=== PATIENT | male | born 1970 | race Caucasian/White ===

== ENCOUNTER 2020-12-11 17:39 | Emergency (ER) | payer BC ==
[2020-12-11 17:55] VITALS: RESP 18
--- NOTE | 2020-12-11 17:56 | ED ---
General Adult HPI <Hemant Gooden - Last Filed: 12/11/20 17:54> - General Source: patient, family, RN notes reviewed Mode of arrival: ambulatory - History of Present Illness -: days(s) (7) Consistency: constant Improves with: none Worsens with: movement Associated Symptoms: denies other symptoms <Mariusz Wilkersoni - Last Filed: 12/11/20 20:10> - General Stated complaint: Sent by PCP - Low O2 - History of Present Illness Initial comments: 50-year-old male presents to emergency department with a chief complaint of low oxygen levels. Daughter states the patient is developed symptoms about one week ago along with a productive cough and congestion. States they use a pulse oximeter home which read in the high 80s so they called the primary care physician's office who advised him to come to the emergency department for evaluation. Patient does report feeling winded on exertion but denies any chest pain. He reports generalized myalgias and fatigue but denies any nausea vomiting diarrhea. (Hemant Gooden) - Related Data Home Medications Medication Instructions Recorded Confirmed Albuterol Sulfate [Albuterol 2 puff INHALATION RT-Q4H PRN 12/11/20 12/11/20 Sulfate Hfa] Cholecalciferol [Vitamin D3 (25 25 mcg PO DAILY 12/11/20 12/11/20 Mcg = 1000 Iu)] Fluticasone Propionate 1 spr EA NOSTRIL DAILY PRN 12/11/20 12/11/20 Guaifen/Phenyleph/Acetaminophn 1 tab PO BID PRN 12/11/20 12/11/20 [Tylenol Sinus Severe Caplet] Ibuprofen [Motrin Ib] 800 mg PO Q8H PRN 12/11/20 12/11/20 Loratadine [Claritin] 10 mg PO DAILY PRN 12/11/20 12/11/20 Sildenafil Citrate [Viagra] 50 mg PO DAILY PRN 12/11/20 12/11/20 Zinc 50 mg PO DAILY 12/11/20 12/11/20 guaiFENesin [Mucinex] 600 mg PO BID PRN 12/11/20 12/11/20 Allergies Allergy/AdvReac Type Severity Reaction Status Date / Time No Known Allergies Allergy Verified 12/11/20 19:08 Review of Systems ROS Other: All systems not noted in ROS Statement are negative. <Hemant Gooden - Last Filed: 12/11/20 17:54> ROS Other: All systems not noted in ROS Statement are negative. <Shamir Wilkerson - Last Filed: 12/11/20 20:10> ROS Statement: Those systems with pertinent positive or pertinent negative responses have been documented in the HPI. General Exam General appearance: alert, in no apparent distress Head exam: Present: normocephalic, normal inspection Eye exam: Present: normal appearance (glasses), PERRL, EOMI. Absent: scleral icterus, conjunctival injection, periorbital swelling Pupils: Present: normal accommodation ENT exam: Present: normal exam, mucous membranes moist Neck exam: Present: normal inspection, full ROM. Absent: tenderness, meningismus, lymphadenopathy, thyromegaly Respiratory exam: Present: decreased breath sounds (rll). Absent: respiratory distress, wheezes Cardiovascular Exam: Present: tachycardia GI/Abdominal exam: Present: soft, normal bowel sounds. Absent: distended, tenderness, guarding, rebound, rigid Back exam: Absent: tenderness (scoliosis) Neurological exam: Present: alert, oriented X3, CN II-XII intact Psychiatric exam: Present: normal affect, normal mood Skin exam: Present: warm, dry, intact, normal color. Absent: rash <Shamir Wilkerson - Last Filed: 12/11/20 20:10> Course Vital Signs 12/11/20 12/11/20 17:52 18:16 Temperature 101.4 F H 100.2 F H Pulse Rate 114 H 106 H Respiratory 18 18 Rate Blood Pressure 138/62 O2 Sat by Pulse 90 L 96 Oximetry Medical Decision Making - Lab Data Result diagrams: 12/11/20 19:05 12/11/20 19:05 - EKG Data EKG shows normal: sinus rhythm, intervals (Ventricular rate 104, NJ 0.17, QRS 0.94, QTc 0.431) <Shamir Wilkerson - Last Filed: 12/11/20 20:10> - Medical Decision Making Ambulatory pulse ox 91% resting pulse ox 96% on room air, d-dimer -0.49, troponin -0.012, PVC count 7.2 patient nontoxic appearing. Chest x-ray shows diffuse patchy infiltrates, heart size within normal limits, no pneumothorax. Discussed results with the patient was agreeable to going home and continuing oral hydration, Tylenol, Motrin for fever or body aches and following up with primary care doctor. Case discussed with Dr. Thornton who is agreeable with this plan. (Shamir Wilkerson) - Lab Data Lab Results 12/11/20 12/11/20 12/11/20 Range/Units 17:57 19:05 19:05 WBC 7.2 (3.8-10.6) k/uL RBC 4.16 L (4.30-5.90) m/uL Hgb 13.8 (13.0-17.5) gm/dL Hct 39.9 (39.0-53.0) % MCV 96.0 (80.0-100.0) fL MCH 33.2 (25.0-35.0) pg MCHC 34.6 (31.0-37.0) g/dL RDW 11.9 (11.5-15.5) % Plt Count 365 (150-450) k/uL MPV 7.1 Neutrophils % 76 % Lymphocytes % 14 % Monocytes % 5 % Eosinophils % 2 % Basophils % 1 % Neutrophils # 5.4 (1.3-7.7) k/uL Lymphocytes # 1.0 (1.0-4.8) k/uL Monocytes # 0.4 (0-1.0) k/uL Eosinophils # 0.1 (0-0.7) k/uL Basophils # 0.1 (0-0.2) k/uL PT 11.0 (9.0-12.0) sec INR 1.0 (<1.2) APTT 24.6 (22.0-30.0) sec D-Dimer 0.49 (<0.60) mg/L FEU Sodium (137-145) mmol/L Potassium (3.5-5.1) mmol/L Chloride (98-107) mmol/L Carbon Dioxide (22-30) mmol/L Anion Gap mmol/L BUN (9-20) mg/dL Creatinine (0.66-1.25) mg/dL Est GFR (CKD-EPI)AfAm (>60 ml/min/1.73 sqM) Est GFR (CKD-EPI)NonAf (>60 ml/min/1.73 sqM) Glucose (74-99) mg/dL Plasma Lactic Acid Juma (0.7-2.0) mmol/L Calcium (8.4-10.2) mg/dL Total Bilirubin (0.2-1.3) mg/dL AST (17-59) U/L ALT (4-49) U/L Alkaline Phosphatase (38-126) U/L Troponin I (0.000-0.034) ng/mL Total Protein (6.3-8.2) g/dL Albumin (3.5-5.0) g/dL Coronavirus (PCR) Detected A (Not Detectd) 12/11/20 12/11/20 12/11/20 Range/Units 19:05 19:05 19:05 WBC (3.8-10.6) k/uL RBC (4.30-5.90) m/uL Hgb (13.0-17.5) gm/dL Hct (39.0-53.0) % MCV (80.0-100.0) fL MCH (25.0-35.0) pg MCHC (31.0-37.0) g/dL RDW (11.5-15.5) % Plt Count (150-450) k/uL MPV Neutrophils % % Lymphocytes % % Monocytes % % Eosinophils % % Basophils % % Neutrophils # (1.3-7.7) k/uL Lymphocytes # (1.0-4.8) k/uL Monocytes # (0-1.0) k/uL Eosinophils # (0-0.7) k/uL Basophils # (0-0.2) k/uL PT (9.0-12.0) sec INR (<1.2) APTT (22.0-30.0) sec D-Dimer (<0.60) mg/L FEU Sodium 133 L (137-145) mmol/L Potassium 3.7 (3.5-5.1) mmol/L Chloride 98 (98-107) mmol/L Carbon Dioxide 28 (22-30) mmol/L Anion Gap 7 mmol/L BUN 17 (9-20) mg/dL Creatinine 0.88 (0.66-1.25) mg/dL Est GFR (CKD-EPI)AfAm >90 (>60 ml/min/1.73 sqM) Est GFR (CKD-EPI)NonAf >90 (>60 ml/min/1.73 sqM) Glucose 143 H (74-99) mg/dL Plasma Lactic Acid Juma 1.2 (0.7-2.0) mmol/L Calcium 9.2 (8.4-10.2) mg/dL Total Bilirubin 0.7 (0.2-1.3) mg/dL AST 69 H (17-59) U/L ALT 70 H (4-49) U/L Alkaline Phosphatase 82 (38-126) U/L Troponin I <0.012 (0.000-0.034) ng/mL Total Protein 6.9 (6.3-8.2) g/dL Albumin 3.5 (3.5-5.0) g/dL Coronavirus (PCR) (Not Detectd) Disposition <Hemant Gooden - Last Filed: 12/11/20 17:54> Is patient prescribed a controlled substance at d/c from ED?: No Time of Disposition: 20:10 <Shamir Wilkerson - Last Filed: 12/11/20 20:10> Clinical Impression: Pneumonia due to COVID-19 virus Disposition: HOME SELF-CARE Condition: Fair Instructions (If sedation given, give patient instructions): Viral Pneumonia (ED) Additional Instructions: Continue hydration, deep breathing cough, vitamin C, vitamin D, and zinc. follow up with primary care doctor in 1 week. Return to the emergency room with worsening shortness of breath or inability keep fluids down. Referrals: Tejas Lopez DO [Primary Care Provider] - 1-2 days
[2020-12-11] MEDS ORDERED: ACETAMINOPHEN TAB 325 MG TAB PO STA (18:34)
[2020-12-11] MEDS ORDERED: SODIUM CHLORIDE 0.9% 1,000 ML IV STA (18:35)
[2020-12-11] MEDS ORDERED: IBUPROFEN 600 MG TAB PO STA (19:00)
[2020-12-11 19:13] LABS: Basophils # (A) 0.1 k/uL (0-0.2); Basophils % (A) 1 %; Eosinophils # (A) 0.1 k/uL (0-0.7); Eosinophils % (A) 2 %; HCT 39.9 % (39.0-53.0); HGB 13.8 gm/dL (13.0-17.5); Lymphocytes % (A) 14 %; MCH 33.2 pg (25.0-35.0); MCHC 34.6 g/dL (31.0-37.0); Mean Platelet Volume 7.1; Monocytes # (A) 0.4 k/uL (0-1.0); Monocytes % (A) 5 %; Neutrophils # (A) 5.4 k/uL (1.3-7.7); Neutrophils % (A) 76 %; Platelet Count 365 k/uL (150-450); RBC 4.16 m/uL (4.30-5.90); RDW 11.9 % (11.5-15.5); WBC 7.2 k/uL (3.8-10.6)
[2020-12-11 19:28] LABS: ALT 70 U/L (4-49); AST 69 U/L (17-59); African American GFR (CKD) >90 (>60 ml/min/1.73 sqM); Albumin 3.5 g/dL (3.5-5.0); Alkaline Phosphatase 82 U/L (38-126); Anion Gap 7 mmol/L; Blood Urea Nitrogen 17 mg/dL (9-20); Calcium 9.2 mg/dL (8.4-10.2); Carbon Dioxide 28 mmol/L (22-30); Chloride 98 mmol/L (98-107); Glucose 143 mg/dL (74-99); Non-African American GFR(CKD) >90 (>60 ml/min/1.73 sqM); Potassium 3.7 mmol/L (3.5-5.1); Sodium 133 mmol/L (137-145); Total Bilirubin 0.7 mg/dL (0.2-1.3); Total Protein 6.9 g/dL (6.3-8.2)
[2020-12-11 19:34] LABS: D-Dimer 0.49 mg/L FEU (<0.60); Partial Thromboplastin Time 24.6 sec (22.0-30.0)
--- NOTE | 2020-12-11 19:37 | XR ---
EXAMINATION TYPE: XR chest 2V DATE OF EXAM: 12/11/2020 COMPARISON: NONE HISTORY: Shortness of breath. TECHNIQUE: Frontal and lateral views of the chest are obtained. FINDINGS: There are bilateral diffuse patchy airspace opacities. No pleural effusion, or pneumothora x seen. The cardiac silhouette size is within normal limits. No acute osseous abnormality. Bilateral Jordan rods are seen. IMPRESSION: Diffuse infiltrates.
[2020-12-11 20:45] VITALS: BP 125/86; PULSE 100
[2020-12-11 20:57] VITALS: TEMP 99.8
== END 2020-12-11 20:50 | disposition home or self-care (01) ==
LOC: EC 17:39
DX: U07.1 COVID-19 (principal); J12.82 Pneumonia due to coronavirus disease 2019
CPT/HCPCS: 36415; 71046; 80053; 83605; 84484; 85025; 85379; 85610; 85730; 87635; 93005; 99284

== ENCOUNTER → 2023-12-23 | Outpatient (CLI) | payer BC ==
--- NOTE | 2023-12-25 09:26 | US ---
EXAMINATION TYPE: US prostate transrectal DATE OF EXAM: 12/23/2023 COMPARISON: NONE CLINICAL INDICATION: Male, 53 years old with history of R97.20 ELEVATED PROSTATE SPECIFIC ANTIGEN [PS A]; Elevated PSA. This examination was performed using the transrectal probe. EXAM MEASUREMENTS: Gland Size: 4.7 x 4.1 x 2.1 cm. Volume: 21.27 ml Predicted PSA: 2.55 Actual PSA (if available):4.3 *Calcifications seen in central zone. Largest seen measurin.4 cm. Heterogeneous gland. IMPRESSION: No evidence for suspicious mass. MRI prostate is more sensitive for detection of clinically significa nt prostate adenocarcinoma. Predicted PSA = volume x 0.12 ng/ml Calculated Volume = 0.5236 x L x W x H
== END | disposition home or self-care (01) ==
LOC: RADUSWWP 16:18
PROVIDERS: ATTEND Family Medicine
DX: C61 Malignant neoplasm of prostate (principal); R97.20 Elevated prostate specific antigen [PSA]
CPT/HCPCS: 76872

== ENCOUNTER → 2024-02-13 | Outpatient (CLI) | payer BC ==
--- NOTE | 2024-02-13 09:40 | MR ---
EXAMINATION TYPE: MR Prostate wo/w con DATE OF EXAM: 02/13/2024 9:11 AM COMPARISON: ultrasound 12/23/2023. CLINICAL INDICATION:Male, 54 years old with history of R89.9 UNSP ABNORMAL FINDING IN SPECIMENS FROM OT; TECHNIQUE: Multi-planar, multi-sequence imaging of the pelvis is performed prior to and following the uncomplicated administration of bolus intravenous gadolinium. CONTRAST: 8 cc Gadavist Interpretive Criteria: PI-RADS v2.1 SERUM PSA: PSA 11/26/23: 4.3 PSA 11/14/22: 2.90 SURGICAL PATHOLOGY: No data available. FINDINGS: Prostatic dimensions: 4.4 x 4.3 x 3.1 cm. "Bullet" Volume:38.39 (PSA density=0.11 ng/mL/mL) CENTRAL GLAND (Central and Transition Zones/CZ+TZ): Multiple bilateral, heterogenous appearing hypertrophic stromal nodules, without suspicious lesion. M edian lobe hypertrophy with protrusion into the base of the bladder. (PI-RADS 2) PERIPHERAL ZONE (PZ): Bilateral linear, indistinct wedgelike areas of low ADC, and low T2 signal, No evidence of masslike a bnormality, or localized perfusional hypervascularity, to further suggest a focus of clinically signi ficant prostate cancer. (PI-RADS 2) SEMINAL VESICLES (SV): Symmetric and unremarkable. PERIPROSTATIC TISSUES: Unremarkable. LYMPH NODES: No enlarged pelvic lymph node. REMAINING PELVIS: Bladder wall is within normal limits given distention. No abnormal free or organized intrapelvic fluid collection. No pathologic bowel dilation or mural thickening. No hernia visualized OSSEOUS STRUCTURES: No suspicious osseous abnormality. IMPRESSION: 1. No specific features for high-risk prostate cancer. Maximum PI-RADS score: 2. 2. Mild BPH, estimated gland volume 38.39 mL. 3. No suspicious osseous lesion. No lymphadenopathy. No evidence of prostate adenocarcinoma involving the periprostatic tissues.
== END | disposition home or self-care (01) ==
LOC: RADMRIMAIN 08:03
PROVIDERS: ATTEND Family Medicine
DX: N40.0 Benign prostatic hyperplasia without lower urinary tract symptoms (principal); R89.9 Unspecified abnormal finding in specimens from other organs, systems and tissues
CPT/HCPCS: 72197; A9585

== ENCOUNTER → 2024-12-30 | Outpatient (CLI) | payer BC ==
--- NOTE | 2024-12-31 11:09 | MR ---
EXAMINATION TYPE: MR Prostate wo/w con DATE OF EXAM: 12/30/2024 11:35 AM COMPARISON: 02/13/2024. CLINICAL INDICATION: Male, 54 years old with history of R97.20 ELEVATED PROSTATE SPECIFIC ANTIGEN [PS A]; Elevated PSA. TECHNIQUE: Multi-planar, multi-sequence imaging of the pelvis is performed prior to and following the uncomplicated administration of bolus intravenous gadolinium. IV Contrast: 8 mL Gadobutrol Interpretive Criteria: PI-RADS v2.1 SERUM PSA: -- = 5.4 3-- = 4.3 SURGICAL PATHOLOGY: No data available. FINDINGS: Prostatic dimensions: 5.5 x 4.4 x 3.4 cm. "Bullet" Volume:53.85 (PSA density=0.10 ng/mL/mL) CENTRAL GLAND (Central and Transition Zones/CZ+TZ): Prominent high DWI and low ADC signal low T2 signal area in the right central zone mid gland. (PI-RAD S 4) PERIPHERAL ZONE (PZ): Bilateral linear, indistinct wedgelike areas of low ADC, and low T2 signal, No evidence of masslike a bnormality, or localized perfusional hypervascularity, to further suggest a focus of clinically signi ficant prostate cancer. (PI-RADS 2) SEMINAL VESICLES (SV): Symmetric and unremarkable. PERIPROSTATIC TISSUES: Unremarkable. LYMPH NODES: No enlarged pelvic lymph node. REMAINING PELVIS: Bladder wall is within normal limits given distention. No abnormal free or organized intrapelvic fluid collection. No pathologic bowel dilation or mural thickening. Colonic diverticula are present. No hernia visualized OSSEOUS STRUCTURES: No suspicious osseous abnormality. IMPRESSION: 1. PI-RADS 4 Lesion in the right central zone mid gland measuring 8 mm. zone, XXX gland measuring XXX mm. 2. Moderate BPH, estimated gland volume 53.85 (PSA density=0.10 ng/mL/mL) 3. No suspicious osseous lesion. No lymphadenopathy. No evidence of prostate adenocarcinoma involving the periprostatic tissues. [facility], , 12/31/2024 11:07 AM
== END | disposition home or self-care (01) ==
LOC: RADMRIMAIN 10:13
PROVIDERS: ATTEND Family Medicine
DX: N40.0 Benign prostatic hyperplasia without lower urinary tract symptoms (principal); R97.20 Elevated prostate specific antigen [PSA]; K57.30 Diverticulosis of large intestine without perforation or abscess without bleeding
CPT/HCPCS: 72197; A9585

== ENCOUNTER → 2025-02-15 | Outpatient (CLI) | payer BC ==
[2025-02-15 15:12] LABS: Basophils # (A) 0.04 X 10*3/uL (0.00-0.10); Basophils % (A) 0.8 %; Eosinophils # (A) 0.16 X 10*3/uL (0.04-0.35); Eosinophils % (A) 3.1 %; HCT 44.1 % (39.6-50.0); HGB 14.9 g/dL (13.0-17.0); Lymphocytes % (A) 34.7 %; MCH 32.9 pg (27.0-32.0); MCHC 33.8 g/dL (32.0-37.0); MCV 97.4 FL (80.0-97.0); Mean Platelet Volume 10.3 FL (9.5-12.2); Monocytes # (A) 0.46 X 10*3/uL (0.20-1.00); Monocytes % (A) 8.9 %; NRBC Per 100 WBC 0 X 10*3/uL (0.00-0.01); Neutrophils # (A) 2.71 X 10*3/uL (1.80-7.70); Neutrophils % (A) 52.3 %; Platelet Count 230 X 10*3/uL (140-440); RBC 4.53 X 10*6/uL (4.40-5.60); RDW 12.7 % (11.5-14.5); WBC 5.18 X 10*3/uL (4.50-10.00)
[2025-02-15 15:16] LABS: BUN/Creat Ratio 15.78 Ratio (12.00-20.00); Blood Urea Nitrogen 14.2 mg/dL (9.0-27.0); Calcium 9.5 mg/dL (8.7-10.3); Carbon Dioxide 24.7 mmol/L (21.6-31.8); Chloride 105 mmol/L (96-109); Glucose 117 mg/dL (70-110); Potassium 4.3 mmol/L (3.5-5.5); Sodium 142 mmol/L (135-145)
[2025-02-15 15:24] LABS: Appearance,Urine Clear (Clear); Bilirubin,Urine Negative (Negative); Blood,Urine Negative (Negative); Color,Urine Yellow (Yellow); Ketones,Urine Negative (Negative); Nitrite,Urine Negative (Negative); PH, Urine 7.5; Specific Gravity,Urine 1.006 (1.001-1.030); Urobilinogen,Urine 0.2 E.U./DL
== END | disposition home or self-care (01) ==
LOC: LABPAT 10:15
PROVIDERS: ATTEND Urology
DX: Z01.818 Encounter for other preprocedural examination (principal)
CPT/HCPCS: 80048; 81003; 85025; 87086

== ENCOUNTER 2025-02-22 08:26 | Day surgery (SDC) | payer BC ==
[~2025-02-22 08:26] MED LIST: LIDOCAINE 1% (10MG/ML) FOR IV START INTRADERMA PRN
--- NOTE | 2025-02-22 08:26 | P.HPIHPCON ---
History of Present Illness H&P Date: 02/22/25 Chief Complaint: Elevated PSA This is a 55-year-old male with history of elevated PSA, underwent a prostate MRI that showed evidence of a PI-RADS 4 lesion along the right mid gland. Discussed with him given this finding I do recommend proceeding with an MRI fusion biopsy of the prostate. He is aware the risk which include but not limited to bleeding, infection Consent for Procedure: I have explained the operation/procedure to the patient, including the risks, benefits, side effects, alternative therapies (including not receiving the proposed treatment or service), the likelihood of the patient achieving his/her goals, and potential recuperation problems for the procedure/sedation/analgesia, as well as any blood products, if indicated. I also explained to the patient the risks, benefits and side effects of the alternatives, as well as the risks related to not receiving the proposed procedure, care, treatment, or services. Past Medical History Past Medical History: Eye Disorder, GERD/Reflux, Prostate Disorder Additional Past Medical History / Comment(s): increased eye pressure. PSA elevated- MRI ?. scoliosis History of Any Multi-Drug Resistant Organisms: None Reported Additional Past Surgical History / Comment(s): Back surgery.- steel rods in back., Past Anesthesia/Blood Transfusion Reactions: No Reported Reaction Smoking Status: Former smoker - Past Family History Father Family Medical History: Cancer Additional Family Medical History / Comment(s): Mother Family Medical History: CVA/TIA Additional Family Medical History / Comment(s): Medications and Allergies Home Medications Medication Instructions Recorded Confirmed Type Cholecalciferol [Vitamin D3 (25 25 mcg PO DAILY 12/11/20 02/17/25 History Mcg = 1000 Iu)] Sildenafil Citrate [Viagra] 50 mg PO DAILY PRN 12/11/20 02/17/25 History Brinzolamide/Brimonidine Tart 1 drop BOTH EYES BID 02/17/25 02/17/25 History [Simbrinza 1%-0.2% Eye Drop] Ciprofloxacin HCl 500 mg PO DIRECTED 02/17/25 02/17/25 History Ibuprofen [Motrin Ib] 200 mg PO DIRECTED PRN 02/17/25 02/17/25 History Multiple Vitamin 1 tab PO DAILY 02/17/25 02/17/25 History Allergies Allergy/AdvReac Type Severity Reaction Status Date / Time No Known Allergies Allergy Verified 02/17/25 14:00 Surgical - Exam - General no distress, no pain - Eyes normal ocular movement, no pale - ENT normal nares, normal mucosa - Respiratory normal expansion, normal respiratory effort - Abdomen Abdomen: soft, non tender Assessment and Plan Assessment: OR for MRI fusion biopsy of the prostate
[2025-02-22 09:14] VITALS: TEMP 98.3
[2025-02-22] MEDS: IV FLUID CONTINUATION 1,000 ML IV ONE (09:19)
[2025-02-22] MEDS: LACTATED RINGERS 1,000 ML IV SCH (09:19)
[2025-02-22] MEDS: GENTAMICIN 40 MG/ML 2 ML VIAL IM PRN (09:23)
[2025-02-22] MEDS: MIDAZOLAM 2 MG/2 ML VIAL IV ONE (10:03)
[2025-02-22] MEDS ORDERED: fentaNYL (PF) 50 MCG/ML 2 ML AMP ONE (10:15)
[2025-02-22] MEDS ORDERED: PROPOFOL 10 MG/ML 20 ML VIAL IV ONE (10:15)
[2025-02-22] MEDS ORDERED: MIDAZOLAM 2 MG/2 ML VIAL ONE (10:15)
--- NOTE | 2025-02-22 10:43 | P.OP ---
Date of Procedure: 02/22/25 Preoperative Diagnosis: Elevated PSA Postoperative Diagnosis: Same Procedure(s) Performed: MRI fusion biopsy of the prostate Anesthesia: MAC Surgeon: Avinash Luther Estimated Blood Loss (ml): 0 Pathology: other (Prostate biopsy) Condition: stable Disposition: PACU Indications for Procedure: This is a 55-year-old male with history of elevated PSA, underwent a prostate MRI that showed evidence of a PI-RADS 4 lesion along the right mid gland. Discussed with him given this finding I do recommend proceeding with an MRI fusion biopsy of the prostate. He is aware the risk which include but not limited to bleeding, infection Description of Procedure: The patient was taken to the operating room and placed in the left lateral decubitus position. The [employer] transrectal ultrasound probe was placed intrarectally. It was then placed within the stand of the [employer] MRI/TRUS Fusion for Prostate Biopsy system. The prostate was imaged in both the axial and sagittal planes. Using the Biopsy gun, 4 biopsies were obtained from the target lesion, there were was one lesions, . The remaining 12 biopsies of the peripheral zone were obtained utilizing a standard template. Once the procedure was completed, the ultrasound probe was removed. The patient tolerated the procedure well was taken to the recovery room stable condition
[2025-02-22 10:58] VITALS: BP 116/80; PULSE 84; RESP 18
== END 2025-02-22 11:35 | disposition home or self-care (01) ==
LOC: OR 08:26
PROVIDERS: ATTEND Urology
DX: C61 Malignant neoplasm of prostate (principal); K21.9 Gastro-esophageal reflux disease without esophagitis; Z87.891 Personal history of nicotine dependence; Z79.899 Other long term (current) drug therapy
CPT/HCPCS: 55700; 88344; 88305; J2250; J1580; J3010; J2704